=== PATIENT | female | born 1975 | race Caucasian/White ===

== ENCOUNTER → 2017-01-28 | Outpatient (CLI) | payer OTHER ==
[~2017-01-28] MED LIST: AMOXICILLIN PO; DICLOFENAC PO; FLEXERIL PO; FLEXERIL10 MG PO; IBUPROFEN600 MG PO
--- NOTE | ~2017-01-28 | CR93 ---
[facility] A Service of [facility] & [facility] RADIOLOGY TEXT RESULTS PATIENT: HOLDEN WASHINGTON LOCATION: [facility] : 71 UNIT #: [id number] AGE: [address]: Ida Orona SEX: F ORDER DR: [id number] [facility] [address] [place], [place] [address] [id number] O MR#: [id number] Acc #: [id number] NAME: HOLDEN WASHINGTON : 1975 SEX: F STUDY DATE/TIME: 01/28/2017 13:18 UNIT: [facility] ROOM: STUDY DESCRIPTION: CR Elbow Min 3 Views Lt Attending Physician: Ida Orona A.P.R.N. Referring Physician: Ida Orona A.P.R.N. Ordering Physician: Ida Orona A.P.R.N. Primary Care Physician: Navi Handley Pa-C MEDICAL IMAGING REPORT This report is preliminary unless electronic signature is present EXAM Left elbow 3 views INDICATION Minus left elbow pain for 3 weeks. COMPARISON No comparisons. FINDINGS No joint effusion. No fracture. No dislocation. IMPRESSION Negative. Dictated by... Andry Washington M.D. THIS IS AN ELECTRONICALLY VERIFIED REPORT Andry Washington M.D. at 01/29/2017 7:54 AM KHUSHBOO/rena TD: 01/28/2017 14:40 JOB #: [id number] MEDICAL IMAGING REPORT Page 1 of 1 COPY
--- NOTE | ~2017-01-28 | US24 ---
[facility] A Service of [facility] & [facility] RADIOLOGY TEXT RESULTS PATIENT: HOLDEN FRANK LOCATION: [facility] : 71 UNIT #: [id number] AGE: [address]: Iad Orona SEX: F ORDER DR: [id number] [facility] [address] [place], [place] [address] [id number] O MR#: [id number] Acc #: [id number] NAME: HOLDEN FRANK : 1975 SEX: F STUDY DATE/TIME: 01/28/2017 14:48 UNIT: [facility] ROOM: STUDY DESCRIPTION: US Breast Unilateral Attending Physician: Ida Orona A.P.R.N. Referring Physician: Ida Orona A.P.R.N. Ordering Physician: Ida Orona A.P.R.N. Primary Care Physician: Navi Handley Pa-C MEDICAL IMAGING REPORT This report is preliminary unless electronic signature is present EXAM Left breast ultrasound 01/28/2017 INDICATIONS Abnormal mammogram today. Followup of small lesions seen on prior ultrasound. FINDINGS For full report, see mammogram and dated 01/28/2017. BIRADS: 2 - Benign finding Dictated by... Gabriel Borjas Jr., M.D. THIS IS AN ELECTRONICALLY VERIFIED REPORT Gabriel Borjas Jr., M.D. at 01/28/2017 4:45 PM BELINDA/vandana TD: 01/28/2017 15:44 JOB #: [id number] MEDICAL IMAGING REPORT Page 1 of 1 COPY
--- NOTE | ~2017-01-28 | MY6 ---
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 [place], [place] [address] [id number] O MR#: [id number] Acc #: [id number] NAME: HOLDEN FRANK : 1975 SEX: F STUDY DATE/TIME: 01/28/2017 14:01 UNIT: [facility] ROOM: STUDY DESCRIPTION: MY Mammogram Dx Dig Freddie Attending Physician: Ida Orona A.P.R.N. Referring Physician: Ida Orona A.P.R.N. Ordering Physician: Ida Orona A.P.R.N. Primary Care Physician: Navi Handley Pa-C MEDICAL IMAGING REPORT This report is preliminary unless electronic signature is present EXAM Diagnostic mammogram. DATE OF EXAM 01/28/2017 INDICATIONS Asymmetric tissue in the left breast seen on prior mammogram. 6-month followup ultrasound of the left breast was recommended at that time. This was not obtained. TECHNIQUE Digital CC, and MLO views of the both breasts were obtained. Spot compression, left CC, MLO views were obtained in addition to a standard left true lateral view. Study was reviewed with an FDA-approved CAD device. COMPARISON Comparison is made with 01/25/2016 and 01/07/2016. FINDINGS Breast parenchyma shows scattered fibroglandular densities. No new masses or suspicious microcalcifications are identified. Asymmetric nodular tissue in the medial left breast is stable. There is some prominent fibroglandular tissue in the upper/outer deep left breast. This appears relatively stable as well. The tissue does efface and there is no underlying mass. Ultrasound was performed of the upper outer quadrant of the left breast. Ultrasound demonstrates dense fibroglandular tissue. The previous ultrasound showed hypoechoic densities at 7 and 8 o'clock. These are no longer visible. Findings were discussed with the patient at the time of her examination today. [facility] A Service of [facility] & [facility] RADIOLOGY TEXT RESULTS PATIENT: HOLDEN FRANK LOCATION: [facility] : 71 UNIT #: [id number] AGE: [address]: Ida Orona SEX: F ORDER DR: CHASE Benign mammogram. Routine screening in 1 year is recommended. BIRADS 2. Patients over the age of 40 are entered into a reminder system with target due date for the next mammogram. A result letter will also be sent to the patient. BIRADS: 2 Benign findings. Dictated by... Gabriel Borjas Jr., M.D. THIS IS AN ELECTRONICALLY VERIFIED REPORT Gabriel Borjas Jr., M.D. at 01/28/2017 4:45 PM BELINDA/neva TD: 01/28/2017 15:46 JOB #: [id number] MEDICAL IMAGING REPORT Page 1 of 1 COPY
--- NOTE | ~2017-01-28 | CR229 ---
[facility] A Service of [facility] & [facility] RADIOLOGY TEXT RESULTS PATIENT: HOLDEN WASHINGTON LOCATION: [facility] : 71 UNIT #: [id number] AGE: [address]: Ida Orona SEX: F ORDER DR: [id number] [facility] [address] [place], [place] [address] [id number] O MR#: [id number] Acc #: [id number] NAME: HOLDEN WASHINGTON : 1975 SEX: F STUDY DATE/TIME: 01/28/2017 13:21 UNIT: [facility] ROOM: STUDY DESCRIPTION: CR Shoulder Min 2 View Lt Attending Physician: Ida Orona A.P.R.N. Referring Physician: Ida Orona A.P.R.N. Ordering Physician: Ida Orona A.P.R.N. Primary Care Physician: Navi Handley Pa-C MEDICAL IMAGING REPORT This report is preliminary unless electronic signature is present EXAM Left shoulder, 2 views INDICATIONS Left shoulder pain for 3 weeks. No comparisons. FINDINGS No fracture or dislocation. Joint spaces are preserved. Soft tissue structures are unremarkable. IMPRESSION Negative Dictated by... Andry Washington M.D. THIS IS AN ELECTRONICALLY VERIFIED REPORT Andry Washington M.D. at 01/29/2017 7:52 AM KHUSHBOO/howard TD: 01/28/2017 14:40 JOB #: [id number] MEDICAL IMAGING REPORT Page 1 of 1 COPY
== END | disposition home or self-care (01) ==
LOC: CMAM 12:52
DX: M79.622 Pain in left upper arm (principal); N64.89 Other specified disorders of breast
CPT/HCPCS: 73030; 73080; 76641; G0204